=== PATIENT | female | born 1965 | race Caucasian/White ===

== ENCOUNTER 2017-05-24 16:46 | Emergency (ER) | payer SELFPAY ==
[~2017-05-24] VITALS: Ht 167.6 cm; Wt 65.0 kg
[2017-05-24 17:03] VITALS: BP 135/88; PULSE 77; RESP 15; TEMP 98.1; O2SAT 100
== END 2017-05-24 17:31 | disposition left against medical advice (07) ==
LOC: PHED 16:46
DX: R51 Headache (principal)
CPT/HCPCS: 99281